=== PATIENT | male | born 1980 | race Caucasian/White ===

== ENCOUNTER → 2019-07-05 08:27 | Outpatient (CLI) | payer BC, SELFPAY ==
[2019-07-05 08:34] LABS: Oligoclonal Banding Comment REF LAB
[2019-07-05 08:50] VITALS: BP 135/72; PULSE 61; RESP 16; TEMP 36.9; O2SAT 96; BMI 36.8
--- NOTE | 2019-07-05 09:05 | RAD_ITS ---
PROCEDURE: Fluoroscopic guided Lumbar Puncture. DATE: July 05, 2019. CLINICAL INDICATION: Weakness. PHYSICIAN: José Malone M.D. MEDICATIONS: 1% lidocaine administered subcutaneously for local anesthesia. ACCESS SITE: Lower posterior back. NEEDLE: 22-gauge spinal needle. SPECIMEN: Approximately 12 mL clear]CSF fluid. FLUOROSCOPY TIME (if supplied): (1:05) minutes/seconds COMPLICATIONS: None immediate. The risks, benefits, and alternatives to the procedure were explained to the patient. The specific risks of bleeding, infection, and neurovascular injury were detailed and accepted. Witnessed informed consent was obtained. The patient was placed on the fluoroscopic table in the prone position. The level for needle entry was determined and marked. The overlying skin was cleaned and prepped in the usual sterile fashion. 2% lidocaine was administered subcutaneously for local anesthesia. Under fluoroscopic guidance a 22-gauge spinal needle was advanced. The thecal sac was entered at the L3- L4 vertebral level. The inner stylet was removed. There was spontaneous flow of clear CSF fluid. The patient was placed in a reversed Trendelenburg position. Approximately 12 mL of cerebrospinal fluid was collected using gravity. The specimen was collected and submitted to the laboratory for further evaluation. The needle was withdrawn,. Hemostasis was achieved and a sterile dressing placed. The patient tolerated the procedure well without any immediate complications. The patient was placed supine with head elevated and returned to the floor in stable condition. RAD/Fluoro Guided Lumbar Puncture IMPRESSION: Successful fluoroscopic-guided lumbar puncture. Electronically Signed: José Malone, at 10:09 EDT , Service support ,
[2019-07-05 09:45] VITALS: BP 134/77; PULSE 64; RESP 18; TEMP 36.9; O2SAT 95; BMI 36.8
[2019-07-05 10:31] LABS: Glucose Spinal Fluid 71 mg/dL (40-75)
[2019-07-05 10:42] LABS: Body Fluid Mononuclear WBC # 0.002 10^3/uL
[2019-07-05 10:45] VITALS: BP 157/94; PULSE 67; RESP 18; O2SAT 97
[2019-07-05 11:37] LABS: Appearance CSF (character) CLEAR (Clear); Auto B Fluid Analyzer BKGD Ct COUNTS W/IN LIMITS (W/IN LIMITS); CSF Color COLORLESS (Colorless); Tested Tube # 4
[2019-07-05 11:39] LABS: RBC Count, Spinal Fluid 11 /mm-3 (None seen)
[2019-07-05 11:40] LABS: Body Fluid QC Type(s) BF1Q; White Count, CSF 2 /mm-3 (0 - 5)
[2019-07-06 14:28] LABS: Pathologist Review Reviewed
[2019-07-07 16:07] LABS: CSF Albumin 15 mg/dL (11-48)
[2019-07-09 12:07] LABS: Myelin Basic Protein, MBP 4.3 ng/mL (0.0-1.2)
== END ==
PROVIDERS: Family Provider Family Medicine; PCP Family Medicine; Referring Provider Psychiatry & Neurology Sleep Medicine; Visit Provider Psychiatry & Neurology Sleep Medicine
DX: R94.02 Abnormal brain scan (principal); R51 Headache
CPT/HCPCS: 36415; 62270; 77003; 82040; 82042; 82784; 82945; 83873; 83916; 84157; 89050; 89051